=== PATIENT | male | born 1980 | race Caucasian/White ===

== ENCOUNTER 2023-03-14 10:04 | Inpatient (IN) | payer BC ==
[~2023-03-14 10:04] MED LIST: HEPARIN SODIUM,PORCINE (1 ML) 2,500 UNIT in SODIUM CHLORIDE 0.9% 250 ML IRRIGATION PRN; HEPARIN SODIUM,PORCINE 10,000 UNIT in SODIUM CHLORIDE 0.9% 1,000 ML IRRIGATION PRN
--- NOTE | 2023-03-14 10:49 | XR ---
EXAMINATION TYPE: XR chest 2V DATE OF EXAM: 03/14/2023 10:39 AM CLINICAL INDICATION:Male, 43 years old with history of Chest Pain; [facility] COMPARISON: None TECHNIQUE: XR chest 2V Frontal and lateral views of the chest. FINDINGS: Lungs/Pleura: There is no evidence of pleural effusion, focal consolidation, or pneumothorax. Pulmonary vascularity: Unremarkable. Heart/mediastinum: Cardiomediastinal silhouette is unremarkable. Musculoskeletal: No acute osseous pathology. IMPRESSION: No acute cardiopulmonary disease/process.
--- NOTE | 2023-03-14 10:50 | ED ---
Chest Pain HPI <Maico Wilkins - Last Filed: 03/14/23 12:29> - General Source: patient, RN notes reviewed Mode of arrival: ambulatory Limitations: no limitations - History of Present Illness MD Complaint: chest pain <Marge Centeno - Last Filed: 03/14/23 18:24> - General Chief Complaint: Chest Pain Stated Complaint: chest pain Time Seen by Provider: 03/14/23 10:12 - History of Present Illness Initial Comments: This is a 43-year-old male who presents to the emergency department for chest pain and shortness of breath. States that starting 2 days ago he was developing a dull aching sensation in the left shoulder with left-sided chest pain. He was also developing feelings of palpitations. The chest pain and shoulder pain have started to subside to some extent, however he is now feeling very short of breath and continues to have palpitations. States that his heart rate usually runs in the 50s, and when he was at home he would have episodes where his heart rate would go up to 140. He had similar problems a couple of years ago and saw his primary care provider, who did blood work and did not find any irregularities. Additionally, states that exertional dyspnea, especially when he is in the gym, has been a persistent problem for several months. His also states that he became winded just walking in from the parking lot today. He feels like he consumed too much caffeine and cannot settle down, however that was not the case. Denies any personal cardiac history. However, states that there is a substantial cardiac history on his mother's side, specifically in his grandmother, who was diagnosed with coronary artery disease before the age of 50. (Marge Centeno) - Related Data Home Medications Medication Instructions Recorded Confirmed No Known Home Medications 03/14/23 03/14/23 Allergies Allergy/AdvReac Type Severity Reaction Status Date / Time No Known Allergies Allergy Verified 03/14/23 14:01 Review of Systems ROS Other: All systems not noted in ROS Statement are negative. <Maico Wilkins - Last Filed: 03/14/23 12:29> ROS Other: All systems not noted in ROS Statement are negative. <Marge Centeno - Last Filed: 03/14/23 18:24> ROS Statement: Those systems with pertinent positive or pertinent negative responses have been documented in the HPI. Past Medical History Past Medical History: No Reported History History of Any Multi-Drug Resistant Organisms: None Reported Past Surgical History: No Surgical Hx Reported Past Psychological History: No Psychological Hx Reported Smoking Status: Vaper Past Alcohol Use History: None Reported Past Drug Use History: None Reported, Marijuana <Marge Centeno - Last Filed: 03/14/23 18:24> General Exam Limitations: no limitations General appearance: alert, in no apparent distress Head exam: Present: atraumatic, normocephalic, normal inspection Respiratory exam: Present: normal lung sounds bilaterally. Absent: respiratory distress, wheezes, rales, rhonchi, stridor Cardiovascular Exam: Present: normal rhythm, bradycardia Neurological exam: Present: alert, oriented X3, CN II-XII intact Psychiatric exam: Present: normal affect, normal mood Skin exam: Present: warm, dry, intact, normal color. Absent: rash <Marge Centeno - Last Filed: 03/14/23 18:24> Course <Maico Wilkins - Last Filed: 03/14/23 12:29> Vital Signs 03/14/23 03/14/23 03/14/23 10:19 11:52 12:52 Temperature 97.8 F Pulse Rate 58 L 59 L 54 L Respiratory 17 20 16 Rate Blood Pressure 131/80 129/83 132/76 O2 Sat by Pulse 53 L 97 98 Oximetry 03/14/23 03/14/23 13:30 14:36 Temperature Pulse Rate 53 L 54 L Respiratory 16 16 Rate Blood Pressure 143/85 130/67 O2 Sat by Pulse 98 98 Oximetry - Reevaluation(s) Reevaluation #1: 03/14/23 12:[address] Menendez, and cardiology, echo ordered, heparin initiated. Patient will be admitted for further evaluation and treatment, myocardial infarction versus myocarditis. (Maico Wilkins) Chest Pain MDM <Marge Centeno - Last Filed: 03/14/23 18:24> - MDM This is a 43-year-old male who presents to the emergency department for chest pain. Was pt. sent in by a medical professional or institution? @ -No Did you speak to anyone other than the patient for history? @ -His provided the information about him becoming winded walking in from the parking lot. Did you review nursing and triage notes? @ -Yes, and I agree, it is accurate with regards to the patient's symptoms. Were old charts reviewed? @ -No Differential Diagnosis? @ -Differential Chest Pain: Stable Angina, Unstable Angina, STEMI, NSTEMI Aortic Dissection, Pneumothorax, Musculoskeletal, Esophageal Spasm GERD, Cholecystitis, Pancreatitis, Zoster, this is not meant to be an all-inclusive list. EKG interpreted by me (3pts min.)? @ -EKG interpreted by me demonstrating the following: Sinus bradycardia. Ventricular rate 57 bpm, AK interval 169 ms, QRS duration 97 ms, QTC 397 ms. X-rays interpreted by me (1pt min.)? @ -Chest x-ray obtained, my interpretation identifies no localized consolidations or infiltrates. CT interpreted by me (1pt min.)? @ -Not obtained U/S interpreted by me (1pt. min.)? @ -Not obtained What testing was considered but not performed? (CT, X-rays, U/S, labs)? Why? @ -None What meds were considered but not given? Why? @ -None Did you discuss the management of the patient with other professionals? @ -Dr. Wilkins discussed the case with Dr. Figueroa, cardiology, who advised a STAT echo, heparin drip, nitropaste, and aspirin with plan to take the patient to the rn labor and delivery later today. He then discussed the case with Dr. Garcia, who accepts the patient for admission to medicine. Did you reconcile home meds? @ -Yes Was smoking cessation discussed for >3mins.? @ -No Was critical care preformed (if so, how long)? @ -Yes, >32 minutes Were there social determinants of health that impacted care today? How? (Homelessness, low income, unemployed, alcoholism, drug addiction, transportation, low edu. Level, literacy, decrease access to med. care, [place] [facility], rehab)? @ -No Was there de-escalation of care discussed even if they declined? (Discuss DNR or withdrawal of care, Hospice)? @ -No What co-morbidities impacted this encounter? (DM, HTN, Smoking, COPD, CAD, Cancer, CVA, Hep., AIDS, mental health diagnosis, sleep apnea, morbid obesity)? @ -None Was patient admitted / discharged? @ -Admitted. Lab work obtained revealing leukocytosis and a notably elevated troponin of 12.7. He also has a mild transaminitis without any prior values for comparison. Covid, influenza, and RSV testing were negative. Heterophile negative as well. Chest x-ray reveals no acute process. Case was reviewed with Dr. Wilkins, ED attending, upon receiving these findings. He discussed the case with Dr. Figueroa, cardiology. It was initially thought that this may be a myocarditis, however after further consideration, it was felt that an NSTEMI was more likely. This likely occurred on Wednesday (2 days ago) when the chest pain and left arm pain began. Patient was started on low intensity heparin protocol, given aspirin, and Nitropaste was applied per Dr. Figueroa's request. STAT echo was ordered as well. Patient admitted to medicine for NSTEMI with plan to take him to the rn labor and delivery later today. Undiagnosed new problem with uncertain prognosis? @ -None Drug Therapy requiring intensive monitoring for toxicity (Heparin, Nitro, Ins ulin, Cardizem)? @ -Heparin Were any procedures done? @ -None Diagnosis/symptom? @ -NSTEMI Acute, or Chronic, or Acute on Chronic? @ -Acute Uncomplicated (without systemic symptoms) or Complicated (systemic symptoms)? @ -Complicated Side effects of treatment? @ -None Exacerbation, Progression, or Severe Exacerbation] @ -Not applicable Poses a threat to life or bodily function? @ -Yes This case was discussed in detail with the attending ED physician, Dr. Wilkins. Presentation, findings, and treatment plan discussed in detail as well. (Marge Centeno) Disposition <Maico Wilkins - Last Filed: 03/14/23 12:29> <Marge Centeno - Last Filed: 03/14/23 18:24> Clinical Impression: Acute non-ST elevation myocardial infarction (NSTEMI) Disposition: ADMITTED IP TO THIS HOSP Condition: Stable
[2023-03-14 11:11] LABS: Basophils % (A) 0 %; Eosinophils # (A) 0.2 k/uL (0-0.7); Eosinophils % (A) 1 %; HCT 51.4 % (39.0-53.0); HGB 17.1 gm/dL (13.0-17.5); Lymphocytes # (A) 1.2 k/uL (1.0-4.8); Lymphocytes % (A) 6 %; MCH 31.8 pg (25.0-35.0); MCHC 33.3 g/dL (31.0-37.0); MCV 95.3 fL (80.0-100.0); Mean Platelet Volume 7.4; Monocytes # (A) 1.4 k/uL (0-1.0); Monocytes % (A) 7 %; Neutrophils # (A) 18.2 k/uL (1.3-7.7); Neutrophils % (A) 86 %; Platelet Count 357 k/uL (150-450); RBC 5.39 m/uL (4.30-5.90); RDW 13.6 % (11.5-15.5); WBC 21.1 k/uL (3.8-10.6)
[2023-03-14 11:26] LABS: Prothrombin Time 11.1 sec (10.0-12.5)
[2023-03-14 11:37] LABS: ALT 63 U/L (4-49); AST 165 U/L (17-59); African American GFR (CKD) >90 (>60 ml/min/1.73 sqM); Albumin 4.7 g/dL (3.5-5.0); Alkaline Phosphatase 57 U/L (38-126); Anion Gap 15 mmol/L; Blood Urea Nitrogen 9 mg/dL (9-20); Calcium 11.1 mg/dL (8.4-10.2); Carbon Dioxide 22 mmol/L (22-30); Chloride 102 mmol/L (98-107); Glucose 99 mg/dL (74-99); Magnesium 1.7 mg/dL (1.6-2.3); Non-African American GFR(CKD) >90 (>60 ml/min/1.73 sqM); Potassium 4.5 mmol/L (3.5-5.1); Sodium 139 mmol/L (137-145); Total Bilirubin 0.9 mg/dL (0.2-1.3); Total Protein 7.8 g/dL (6.3-8.2)
[2023-03-14 11:38] LABS: NT-Pro-B-Type Natriuretic Pept 543 pg/mL
[2023-03-14] MEDS ORDERED: HEPARIN SODIUM 1,000 UN/ML (10ML VL) IV ONE (11:59)
[2023-03-14] MEDS ORDERED: ASPIRIN 325 MG TAB PO STA ×2 (11:59→12:22)
[2023-03-14] MEDS ORDERED: HEPARIN SODIUM 1,000 UN/ML (10ML VL) IV PRN (11:59)
[2023-03-14] MEDS ORDERED: HEPARIN SOD,PORK IN 0.45% NACL 25,000 UNIT in 0.45% NACL 1 250ML.BAG IV SCH (12:00)
[2023-03-14] MEDS ORDERED: NITROGLYCERIN OINT 1 INCH/GM PACKET TOPICAL STA (12:11)
[2023-03-14] MEDS ORDERED: NITROGLYCERIN SL TABS 0.4 MG TAB SUBLINGUAL PRN ×2 (12:22→17:28)
[2023-03-14] MEDS ORDERED: ALPRAZolam 0.25 MG TAB PO PRN (12:22)
[2023-03-14] MEDS ORDERED: ATORVASTATIN 80 MG TAB PO STA (12:22)
[2023-03-14] MEDS ORDERED: ALPRAZolam 0.5 MG TAB PO PRN (12:22)
--- NOTE | 2023-03-14 12:22 | P.CRDCN ---
History of Present Illness Consult date: 03/14/23 History of present illness: History of Present Illness: The patient is a 43-year-old male with no prior cardiac history who presented with symptoms of left-sided chest discomfort him a shoulder discomfort that started on Wednesday night associated with dyspnea and palpitations and anxiety. His symptoms persisted until today, he came into the emergency room and was noted to have a troponin of 12. There was no acute ST segment changes. He denies any prior documented cardiac history. He is relatively active physically without any exertional chest discomfort in the past, PND, orthopnea or peripheral edema. He is in sinus mechanism on presentation but he felt palpit ations at home. He felt diaphoretic and dizzy today. He continues to have mild discomfort at the time of my evaluation. He smokes marijuana and chews tobacco. Medications: None Review of Systems: Respiratory: He is a history of dyspnea recently but no wheezing GI: No nausea or vomiting . No history of peptic ulcer disease. No recent GI bleed. : No hematuria or dysuria. Nervous System: No stroke or seizure. Physical Examination: 43-year-old male, alert oriented no apparent distress ,Blood pressure 129/80, Heart rate 59 Head: Normocephalic. Eyes: Sclerae nonicteric. Neck: Good carotid upstroke, no bruit, no jugular venous distention. Lungs: Clear to auscultation. Heart: Regular rate and rhythm, S1-S2, no S3, no rub. No murmur. Abdomen: Soft nontender, positive bowel sounds no organomegaly. Extremities: No edema, intact distal pulses. Labs: WBC 21.1, hemoglobin 17.1, potassium 4.1, BUN 9, creatinine 0.84. Troponin 12.7, NT proBNP 543. Chest x-ray with no acute infiltrate EKG: Sinus mechanism with no acute ST segment changes Impression: 1. Non-STEMI, the patient started with symptoms of chest discomfort over 36 hours ago, it is unclear if the troponin are trending up or down 2. History of tobacco use 3. History of marijuana use 4. Family history premature CAD in his grandmother but not parents Plan: 1. Obtain an echocardiogram 2. Start heparin 3. I have recommended to proceed with cardiac catheterization, the risks and the complications were discussed with the patient who is in full agreement and understanding 4. Depending on the results of the testing further recommendations will be made 5. Thank you for this consult we will follow with you Past Medical History Past Medical History: No Reported History History of Any Multi-Drug Resistant Organisms: None Reported Past Surgical History: No Surgical Hx Reported Past Psychological History: No Psychological Hx Reported Smoking Status: Vaper Past Alcohol Use History: None Reported Past Drug Use History: None Reported, Marijuana Medications and Allergies Home Medications Medication Instructions Recorded Confirmed Type No Known Home Medications 03/14/23 03/14/23 History Allergies Allergy/AdvReac Type Severity Reaction Status Date / Time No Known Allergies Allergy Verified 03/14/23 10:19 Physical Exam Vitals: Vital Signs Temp Pulse Resp BP Pulse Ox 03/14/23 11:52 59 L 20 129/83 97 03/14/23 10:19 97.8 F 58 L 17 131/80 53 L Intake and Output 03/13/23 03/14/23 03/14/23 22:59 06:59 14:59 Other: Weight 102.058 kg Results 03/14/23 11:03 03/14/23 11:03 Cardiac Enzymes 03/14/23 03/14/23 Range/Units 11:03 11:03 AST 165 H (17-59) U/L Troponin I 12.700 H* (0.000-0.034) ng/mL Coagulation 03/14/23 Range/Units 11:03 PT 11.1 (10.0-12.5) sec APTT 22.0 (22.0-30.0) sec CBC 03/14/23 Range/Units 11:03 WBC 21.1 H (3.8-10.6) k/uL RBC 5.39 (4.30-5.90) m/uL Hgb 17.1 (13.0-17.5) gm/dL Hct 51.4 (39.0-53.0) % Plt Count 357 (150-450) k/uL Comprehensive Metabolic Panel 03/14/23 Range/Units 11:03 Sodium 139 (137-145) mmol/L Potassium 4.5 (3.5-5.1) mmol/L Chloride 102 (98-107) mmol/L Carbon Dioxide 22 (22-30) mmol/L BUN 9 (9-20) mg/dL Creatinine 0.84 (0.66-1.25) mg/dL Glucose 99 (74-99) mg/dL Calcium 11.1 H (8.4-10.2) mg/dL AST 165 H (17-59) U/L ALT 63 H (4-49) U/L Alkaline Phosphatase 57 (38-126) U/L Total Protein 7.8 (6.3-8.2) g/dL Albumin 4.7 (3.5-5.0) g/dL Current Medications Generic Name Dose Route Start Last Admin Trade Name Freq PRN Reason Stop Dose Admin Heparin Sodium (Porcine) 0 unit 03/14/23 11:59 Heparin Sodium 1,000 Un/Ml (10ml Vl) IV PER PROTOCOL PRN Low PTT Protocol Heparin Sodium/Sodium Chloride 250 mls @ 10 mls/hr 03/14/23 12:00 25,000 unit/ Sodium Chloride IV .Q24H [facility] Protocol 9.798 UNITS/KG/HR Intake and Output 03/13/23 03/14/23 03/14/23 22:59 06:59 14:59 Other: Weight 102.058 kg Patient Weight 03/15/23 06:59 Weight 102.058 kg 03/14/23 11:03 03/14/23 11:03
[2023-03-14] MEDS ORDERED: ASPIRIN 81 MG PO STA (12:23)
[2023-03-14] MEDS ORDERED: ACETAMINOPHEN TAB 325 MG TAB PO PRN (12:30)
[2023-03-14] MEDS ORDERED: MORPHINE SULFATE 4 MG/ML SYRINGE IV PRN (12:30)
[2023-03-14] MEDS ORDERED: HYDROcodone/APAP 5-325MG 1 EACH TAB PO PRN (12:30)
[2023-03-14] MEDS ORDERED: NALOXONE 0.4 MG/ML 1 ML VIAL IV PRN (12:30)
[2023-03-14] MEDS ORDERED: ONDANSETRON 4 MG/2 ML VIAL IVP PRN (12:30)
--- NOTE | 2023-03-14 13:30 | P.HPIM ---
History of Present Illness This is a with no significant past medical history Presents because of left-sided chest pain started Wednesday morning or Wednesday night on the left side of the chest radiating to the left shoulder blade and the back, nonspecific about 4/10 in severity Associated with dyspnea. He denies any headache weakness numbness, no change in urine or bowel habits He denies smoking but he chews tobacco and he was counseled to quit and he agrees. No alcohol and he uses marijuana. Patient Vitas looks stable, he has mild asymptomatic bradycardia He is afebrile. BMP and liver enzymes were unremarkable He has leukocytosis of 21,000, d-dimer negative less than 0.17. Troponin elevated at 27.7 BNP is 543. Influenza A and type B, RSV, SARS (coronavirus) are and detected Hydrophil intubated is negative Chest x-ray is negative. Patient was started with heparin drip Review of Systems Review of systems CONSTITUTIONAL: No fever, no malaise, no fatigue. HEENT: No recent visual problems or hearing problems. Denied any sore throat. CARDIOVASCULAR: No orthopnea, PND, no palpitations, no syncope. PULMONARY: No shortness of breath, no cough, no hemoptysis. GASTROINTESTINAL: No diarrhea, no nausea, no vomiting, no abdominal pain. Normoactive bowel sounds. NEUROLOGICAL: No headaches, no weakness, no numbness. HEMATOLOGICAL: Denies any bleeding or petechiae. GENITOURINARY: Denies any burning micturition, frequency, or urgency. MUSCULOSKELETAL/RHEUMATOLOGICAL: Denies any joint pain, swelling, or any muscle pain. ENDOCRINE: Denies any polyuria or polydipsia. Past Medical History Past Medical History: No Reported History History of Any Multi-Drug Resistant Organisms: None Reported Past Surgical History: No Surgical Hx Reported Past Psychological History: No Psychological Hx Reported Smoking Status: Vaper Past Alcohol Use History: None Reported Past Drug Use History: None Reported, Marijuana Medications and Allergies Home Medications Medication Instructions Recorded Confirmed Type No Known Home Medications 03/14/23 03/14/23 History Allergies Allergy/AdvReac Type Severity Reaction Status Date / Time No Known Allergies Allergy Verified 03/14/23 10:19 Physical Exam Vitals: Vital Signs Temp Pulse Resp BP Pulse Ox 03/14/23 12:52 54 L 16 132/76 98 03/14/23 11:52 59 L 20 129/83 97 03/14/23 10:19 97.8 F 58 L 17 131/80 53 L Intake and Output 03/13/23 03/14/23 03/14/23 22:59 06:59 14:59 Other: Weight 102.058 kg GENERAL: The patient is alert and oriented x3, not in any acute distress. Well developed, well nourished. HEENT: Pupils are round and equally reacting to light. EOMI. No scleral icterus. No conjunctival pallor. Normocephalic, atraumatic. No pharyngeal erythema. No thyromegaly. CARDIOVASCULAR: S1 and S2 present. No murmurs, rubs, or gallops. PULMONARY: Chest is clear to auscultation, no wheezing , no crackles. ABDOMEN: Soft, nontender, nondistended, normoactive bowel sounds. No palpable organomegaly. MUSCULOSKELETAL: No joint swelling or deformity. EXTREMITIES: No cyanosis, clubbing, or pedal edema. NEUROLOGICAL: Gross neurological examination did not reveal any focal deficits. SKIN: No rashes. no petechiae. Results CBC & Chem 7: 03/14/23 11:03 03/14/23 11:03 Labs: Abnormal Lab Results - Last 24 Hours (Table) 03/14/23 03/14/23 03/14/23 Range/Units 11:03 11:03 11:03 WBC 21.1 H (3.8-10.6) k/uL Neutrophils # 18.2 H (1.3-7.7) k/uL Monocytes # 1.4 H (0-1.0) k/uL Calcium 11.1 H (8.4-10.2) mg/dL AST 165 H (17-59) U/L ALT 63 H (4-49) U/L Troponin I 12.700 H* (0.000-0.034) ng/mL Assessment and Plan Assessment: Non-STEMI with elevated troponin Left side pain of the chest secondary to above Left leukocytosis mostly secondary to above, no evidence of infection and patient is afebrile Asymptomatic bradycardia Plan: Continue with heparin drip Cardiology team are planning for cardiac cath Patient received aspirin and lipid respiratory the emergency room Labs and medication were reviewed.. Continue same treatment. Continue with symptomatic treatment. Resume home medication. Monitor labs and vitals. DVT and GI prophylaxis. Further recommendations as per clinical course of the patient DVT prophylaxis: heparin GI Prophylaxis: Pepcid Prognosis is guarded
--- NOTE | 2023-03-14 15:08 | CA ---
Transthoracic Echo Report Name: Zeke Tesfaye Age: 43 Gender: M : 1980 Exam Date: 03/14/2023 12:15 Exam Location: [place] [facility] Ht (in): 72 Wt (lb): 225 Ordering Physician: Maico Wilkins MD Attending/Referring Phys: [employer] Richelle Perez [facility] Procedure CPT: Indications: [place] Cardiac Hx: Technical Quality: Fair Contrast 1: Total Dose (mL): Contrast 2: Total Dose (mL): MEASUREMENTS (Male / Female) Normal Values 2D ECHO LV Diastolic Diameter PLAX 5.4 cm 4.2 - 5.9 / 3.9 - 5.3 cm LV Systolic Diameter PLAX 3.3 cm IVS Diastolic Thickness 1.0 cm 0.6 - 1.0 / 0.6 - 0.9 cm LVPW Diastolic Thickness 1.0 cm 0.6 - 1.0 / 0.6 - 0.9 cm LV Relative Wall Thickness 0.4 LVOT Diameter 2.0 cm Ascending Aorta Diameter 3.5 cm M-MODE Aortic Root Diameter MM 3.0 cm LA Systolic Diameter MM 3.7 cm LA Ao Ratio MM 1.2 AV Cusp Separation MM 2.5 cm DOPPLER AV Peak Velocity 193.0 cm/s AV Peak Gradient 14.9 mmHg AV Mean Velocity 121.8 cm/s AV Mean Gradient 7.3 mmHg AV Velocity Time Integral 38.2 cm LVOT Peak Velocity 184.2 cm/s LVOT Peak Gradient 13.6 mmHg LVOT Velocity Time Integral 36.4 cm LVOT Stroke Volume 118.1 cm??? LVOT Stroke Volume Index 52.7 ml/m??? LVOT Cardiac Index 2463.8 cm???/min???m??? AV Area Cont Eq vti 3.1 cm??? AV Area Cont Eq pk 3.1 cm??? Mitral E Point Velocity 81.4 cm/s Mitral A Point Velocity 62.3 cm/s Mitral E to A Ratio 1.3 MV Deceleration Time 177.7 ms LV E' Lateral Velocity 19.1 cm/s Mitral E to LV E' Lateral Ratio 4.3 LV E' Septal Velocity 11.4 cm/s Mitral E to LV E' Septal Ratio 7.1 FINDINGS Left Ventricle Left ventricular wall thickness at upper limits of normal. Left ventricular cavity size normal. Normal left ventricular systolic function. Normal left ventricular diastolic filling pattern. Left ventricular ejection fraction is estimated at 55-60 %. Right Ventricle Mild right ventricular dilatation. Unable to estimate the right ventricular systolic pressure. Right Atrium Moderate right atrial dilatation. Left Atrium The left atrium is normal in size. Mitral Valve Structurally normal mitral valve without significant stenosis or prolapse. Mild mitral regurgitation. Aortic Valve Trileaflet aortic valve. No aortic valve stenosis or regurgitation. Tricuspid Valve Structurally normal tricuspid valve. No tricuspid regurgitation. Pulmonic Valve Pulmonic valve not well visualized. Pericardium Normal pericardium without effusion. Aorta Normal aortic root dimension. CONCLUSIONS Normal left ventricle size and systolic function Mild mitral regurgitation Previewed by: Dr. Frederic Figueroa MD (Electronically Signed) Final Date: 14 March 2023 15:07
[2023-03-14] MEDS ORDERED: LIDOCAINE 1% INJ 10MG/ML (20 ML MDV) ONE (15:40)
[2023-03-14] MEDS ORDERED: VERAPAMIL 2.5 MG/ML 2 ML AMP ONE (15:41)
[2023-03-14] MEDS ORDERED: SODIUM CHLORIDE 0.9% 1,000 ML IV ONE (15:50)
[2023-03-14] MEDS ORDERED: HEPARIN SODIUM 1,000 UN/ML (10ML VL) ONE ×2 (15:55→16:27)
[2023-03-14] MEDS ORDERED: fentaNYL (PF) 50 MCG/ML 2 ML AMP ONE (15:55)
[2023-03-14] MEDS ORDERED: fentaNYL (PF) 50 MCG/ML 2 ML AMP IVP ONE (15:56)
[2023-03-14] MEDS ORDERED: LIDOCAINE 1% INJ 10MG/ML (20 ML MDV) SQ ONE (15:57)
[2023-03-14] MEDS: MIDAZOLAM 2 MG/2 ML VIAL IVP ONE ×2 (15:58→16:52)
[2023-03-14] MEDS ORDERED: VERAPAMIL SYRINGE (5 MG/10 ML) INTRAARTER ONE (15:59)
[2023-03-14] MEDS: HEPARIN SODIUM 1,000 UN/ML (10ML VL) IV ONE ×6 (16:03→17:01)
[2023-03-14] MEDS ORDERED: PRASUGREL 10 MG TAB ONE (16:09)
[2023-03-14] MEDS ORDERED: PRASUGREL 10 MG TAB PO ONE (16:11)
[2023-03-14] MEDS ORDERED: IOPAMIDOL-370 100ML BTL INJ ONE ×3 (16:20→17:18)
[2023-03-14] MEDS: NITROGLYCERIN 1000MCG/10ML SYRINGE INTRACORON ONE ×2 (16:28→16:54)
[2023-03-14] MEDS ORDERED: TIROFIBAN 12.5MG-250ML NS 250 ML IV ONE (17:06)
[2023-03-14] MEDS ORDERED: TIROFIBAN BOLUS 12.5MG/250 ML BAG IV ONE (17:14)
[2023-03-14] MEDS ORDERED: MAG HYDROX/AL HYDROX/SIMETH 30 ML CUP PO PRN (17:28)
[2023-03-14] MEDS ORDERED: ZOLPIDEM 5 MG TAB PO PRN (17:28)
[2023-03-14] MEDS ORDERED: ATROPINE SULFATE 0.1 MG/ML 10ML SYRINGE IV PRN (17:28)
[2023-03-14] MEDS ORDERED: RX INFO: IV CONTRAST WAS GIVEN 1 EACH MISC MISCELLANE PRN (17:28)
[2023-03-14] MEDS ORDERED: SODIUM CHLORIDE 0.9% 1,000 ML in EMPTY BAG 1 BAG IV SCH (17:30)
[2023-03-14] MEDS: TIROFIBAN 12.5MG-250ML NS 250 ML IV SCH (17:30)
--- NOTE | 2023-03-14 17:40 | P.CARDCATH ---
Date of Procedure: 03/14/23 Description of Procedure: Cardiac Catheterization: The patient is a 43-year-old male with known history of chronic tobacco use, family history of premature CAD who presented with chest discomfort that started 2 days ago and on arrival at the troponin of 12. He had no significant EKG changes. Recommendations were made regarding cardiac catheterization, the risks and the complications were discussed with the patient who is in full understanding and agreement. Procedure Description: Patient was brought to photo lab manager in fasting semi-sedated state after receiving Fentanyl and Benadryl achieiving moderate conscious sedated state. Using Xylocaine Anesthesia and modified Seldinger technique, a 6-Icelandic sheath was introduced in the right radial artery . Subsequently, selective coronary angiography was performed using a 5-Icelandic 3.5 bend Jeff catheter. Multiple views of the coronary artery including hemiaxial views were obtained. The 6-Icelandic pigtail catheter was used to cross the aortic valve and LVEDP was calculated. PCI: After removing the catheters 6-Icelandic AL 0.75 guiding catheter was introduced and after cannulating the right coronary ostium a 0.014 BMW J-wire was positioned in the distal PDA. Subsequently a 2.5 x 12 mm Treck was advanced and multiple inflations were done at 8 artemio. Subsequently a Werdsmith eye IVUS was advanced and images were obtained. After removing the catheter 2.25 x 15 mm Xience Skypoint stent was deployed at 16 artemio, after removing the balloon a 3.5 x 38 mm Xience Anand stent was deployed to 16 artemio proximal to the first one. Repeat IVUS images were obtained and subsequently a 4.0 x 20 mm NC Treck was advanced and multiple inflations at 10 artemio were done. After the last inflation the balloon was removed and the wire was removed images were obtained and revealed stable successful stenting. Following that, catheter and sheath were removed. Hemostasis was obtained with deployment of vascular band . There was no immediate complication. Patient was returned to room in stable condition. Of note, the patient received a total of 17,000 units of intravenous heparin as well as intra-arterial verapamil. He received an oral loading dose of Effient. He was started on Aggrastat. His ACT was monitored. He had no EKG changes or chest discomfort with the inflations. Findings: Left main: This is a large size vessel, bifurcating into LAD and left circumflex, left main has no high-grade stenosis LAD: This is a large size vessel, reaching to the apex giving rise to a moderate diagonal branch in the mid segment. The LAD has diffuse intimal disease of 20- 30%. There was ectatic segment in the diagonal branch Left circumflex: This is a codominant vessel, giving rise to a large up to his marginal branch. The first 2 obtuse marginal branch are small in caliber. The vessel bifurcated distally to PDA and PLV. The left circumflex has diffuse intimal disease with area of stenosis up to 30%. RCA: This is a codominant vessel large in caliber. The proximal segment has 20- 30%. The mid and distal segment is diffusely diseased with areas stenosis up to 80%. The PDA has had 80-90% stenosis at the takeoff the PLV is totally occluded no significant antegrade flow Left Ventriculogram: Not performed Hemodynamics: There was no gradient across the aortic valve, LVEDP was 20-25 mmHg Conclusion: 1. Diffuse significant disease in the RCA with total occlusion of the PLV. The PLV and PDA are small in caliber 2. Mild to moderate disease in a diffuse pattern in the LAD and left circumflex 3. Codominant system 4. Successful stenting of the mid and distal RCA with reduction of stenosis from 80% to less than 5%. The PLV was totally occluded Recommendations: The patient would continue on aspirin and Effient for 1 year without any interruption in addition to aggressive coronary risks modification including smoking cessation and maintaining LDL below 70 mg/dL. The findings and the recommendations were discussed with the patient and the family and they were in full understanding and agreement. Duration of sedation is 76 minutes.
[2023-03-14] MEDS: METOPROLOL TARTRATE 25 MG TAB PO SCH (21:46)
[2023-03-15] MEDS: TIROFIBAN 12.5MG-250ML NS 250 ML IV SCH (02:25)
[2023-03-15 04:51] LABS: Basophils % (A) 0 %; Eosinophils % (A) 0 %; HCT 45.7 % (39.0-53.0); HGB 14.8 gm/dL (13.0-17.5); Lymphocytes # (A) 1.6 k/uL (1.0-4.8); Lymphocytes % (A) 9 %; MCH 30.7 pg (25.0-35.0); MCHC 32.5 g/dL (31.0-37.0); MCV 94.5 fL (80.0-100.0); Mean Platelet Volume 7.7; Monocytes % (A) 11 %; Neutrophils # (A) 14.5 k/uL (1.3-7.7); Neutrophils % (A) 78 %; Platelet Count 334 k/uL (150-450); RBC 4.83 m/uL (4.30-5.90); RDW 13.9 % (11.5-15.5); WBC 18.6 k/uL (3.8-10.6)
[2023-03-15 04:55] LABS: INR 1.1 (<1.2); Prothrombin Time 12.1 sec (10.0-12.5)
[2023-03-15 08:34] LABS: African American GFR (CKD) >90 (>60 ml/min/1.73 sqM); Anion Gap 14 mmol/L; Blood Urea Nitrogen 10 mg/dL (9-20); Calcium 10.1 mg/dL (8.4-10.2); Carbon Dioxide 23 mmol/L (22-30); Chloride 101 mmol/L (98-107); Glucose 97 mg/dL (74-99); Non-African American GFR(CKD) >90 (>60 ml/min/1.73 sqM); Potassium 4.7 mmol/L (3.5-5.1); Sodium 138 mmol/L (137-145)
--- NOTE | 2023-03-15 09:01 | P.PN ---
Subjective This is a [id number] with no significant past medical history Presents because of left-sided chest pain started Wednesday morning or Wednesday night on the left side of the chest radiating to the left shoulder blade and the back, nonspecific about 4/10 in severity Associated with dyspnea. He denies any headache weakness numbness, no change in urine or bowel habits He denies smoking but he chews tobacco and he was counseled to quit and he agrees. No alcohol and he uses marijuana. Patient Lonnie looks stable, he has mild asymptomatic bradycardia He is afebrile. BMP and liver enzymes were unremarkable He has leukocytosis of 21,000, d-dimer negative less than 0.17. Troponin elevated at 27.7 BNP is 543. Influenza A and type B, RSV, SARS (coronavirus) are and detected Hydrophil intubated is negative Chest x-ray is negative. Patient was started with heparin drip 03/15/2023 Patient status post PCI of the right coronary artery 2 in the middle and distal parts No chest pain today Patient was counseled about the role antiplatelet therapy with aspirin and effient and he verbalized understanding and acceptance. Risk of bleeding explained extensively for him extensively and he agrees. Possible discharge tone was cleared by cardiology team Objective - Vital Signs Vital signs: Vital Signs Temp 98.6 F 03/15/23 07:36 Pulse 60 03/15/23 07:36 Resp 16 03/15/23 07:36 BP 119/72 03/15/23 07:36 Pulse Ox 97 03/15/23 07:36 FiO2 Intake & Output 03/14/23 03/15/23 03/15/23 18:59 06:59 18:59 Intake Total 652 Balance 652 Weight 102.058 kg 100.1 kg Intake: IV 252 Oral 400 Other: # Voids 2 # Bowel Movements 1 - Exam GENERAL: The patient is alert and oriented x3, not in any acute distress. Well developed, well nourished. HEENT: Pupils are round and equally reacting to light. EOMI. No scleral icterus. No conjunctival pallor. Normocephalic, atraumatic. No pharyngeal erythema. No thyromegaly. CARDIOVASCULAR: S1 and S2 present. No murmurs, rubs, or gallops. PULMONARY: Chest is clear to auscultation, no wheezing , no crackles. ABDOMEN: Soft, nontender, nondistended, normoactive bowel sounds. No palpable organomegaly. MUSCULOSKELETAL: No joint swelling or deformity. EXTREMITIES: No cyanosis, clubbing, or pedal edema. NEUROLOGICAL: Gross neurological examination did not reveal any focal deficits. SKIN: No rashes. no petechiae. - Labs CBC & Chem 7: 03/15/23 03:32 03/15/23 07:45 Labs: Abnormal Lab Results - Last 24 Hours (Table) 03/14/23 03/14/23 03/14/23 Range/Units 11:03 11:03 11:03 WBC 21.1 H (3.8-10.6) k/uL Neutrophils # 18.2 H (1.3-7.7) k/uL Monocytes # 1.4 H (0-1.0) k/uL APTT (22.0-30.0) sec Calcium 11.1 H (8.4-10.2) mg/dL AST 165 H (17-59) U/L ALT 63 H (4-49) U/L Troponin I 12.700 H* (0.000-0.034) ng/mL 03/14/23 03/14/23 03/15/23 Range/Units 13:56 18:21 03:32 WBC 18.6 H (3.8-10.6) k/uL Neutrophils # 14.5 H (1.3-7.7) k/uL Monocytes # 2.0 H (0-1.0) k/uL APTT >200.0 H* (22.0-30.0) sec Calcium (8.4-10.2) mg/dL AST (17-59) U/L ALT (4-49) U/L Troponin I 12.900 H* (0.000-0.034) ng/mL Assessment and Plan Assessment: Non-STEMI with elevated troponin, status post PCI to mid and distal RCA Left side pain of the chest secondary to above Left leukocytosis mostly secondary to above, no evidence of infection and patient is afebrile, improvement Asymptomatic bradycardia Plan: Continue with aspirin and effient Cardiology team are following closely Monitor wbc, improving. No signs of infection. Afebrile. No need for antibiotics for now Labs and medication were reviewed.. Continue same treatment. Continue with symptomatic treatment. Resume home medication. Monitor labs and vitals. DVT and GI prophylaxis. Further recommendations as per clinical course of the patient DVT prophylaxis: DAPT GI Prophylaxis: Pepcid Possible discharge soon once cleared by cardiology team
[2023-03-15] MEDS: METOPROLOL TARTRATE 25 MG TAB PO SCH ×2 (09:02→21:24)
[2023-03-15] MEDS: ATORVASTATIN 80 MG TAB PO SCH (09:02)
[2023-03-15] MEDS: ASPIRIN 81 MG PO SCH (09:02)
[2023-03-15] MEDS: PRASUGREL 10 MG TAB PO SCH (09:03)
[2023-03-15 13:59] VITALS: BMI 29.9
--- NOTE | 2023-03-15 18:13 | P.PN ---
Subjective History of Present Illness: The patient is a 43-year-old male with no prior cardiac history who presented with symptoms of left-sided chest discomfort him a shoulder discomfort that started on Wednesday night associated with dyspnea and palpitations and anxiety. His symptoms persisted until today, he came into the emergency room and was noted to have a troponin of 12. There was no acute ST segment changes. He denies any prior documented cardiac history. He is relatively active physically without any exertional chest discomfort in the past, PND, orthopnea or peripheral edema. He is in sinus mechanism on presentation but he felt palpitations at home. He felt diaphoretic and dizzy today. He continues to have mild discomfort at the time of my evaluation. He smokes marijuana and chews tobacco. Medications: None 03/15 Patient seen and examined. Patient underwent heart catheterization yesterday with diffuse RCA disease and underwent stenting with some thrombus as well and was placed on Aggrastat drip. Echo showed EF 55-60%. Currently denies any chest pain or pressure. He is tolerating antiplatelets. Denies any hematochezia or melena. Vitals reviewed Head: Normocephalic. Eyes: Sclerae nonicteric. Neck: Good carotid upstroke, no bruit, no jugular venous distention. Lungs: Clear to auscultation. Heart: Regular rate and rhythm, S1-S2, no S3, no rub. No murmur. Abdomen: Soft nontender, positive bowel sounds no organomegaly. Extremities: No edema, intact distal pulses. Impression: 1. Non-STEMI type 1 2. History of tobacco use 3. History of marijuana use 4. Family history premature CAD in his grandmother but not parents 5. CAD status post PCI RCA with residual small vessel occluded PLV Plan: Patient currently chest pain-free and underwent stenting of RCA with diffuse disease. Discussed aggressive risk factor modification including tobacco cessation, aggressive cholesterol regimen. Continue to monitor for another 24 hours and if stable 03/16, likely discharge home. Okay for transfer from ICU. Objective - Vital Signs Vital signs: Vital Signs Temp 98.1 F 03/15/23 16:00 Pulse 56 L 03/15/23 16:00 Resp 12 03/15/23 16:00 BP 111/67 03/15/23 16:00 Pulse Ox 97 03/15/23 16:00 FiO2 Intake & Output 1203/15/23 03/15/23 18:59 06:59 18:59 Intake Total 652 600 Balance 652 600 Weight 102.058 kg 100.1 kg 100.1 kg Intake: IV 252 Oral 400 600 Other: # Voids 2 2 # Bowel Movements 1 - Labs CBC & Chem 7: 03/15/23 03:32 03/15/23 07:45 Labs: Abnormal Lab Results - Last 24 Hours (Table) 03/14/23 03/15/23 03/15/23 Range/Units 18:21 03:32 11:37 WBC 18.6 H (3.8-10.6) k/uL Neutrophils # 14.5 H (1.3-7.7) k/uL Monocytes # 2.0 H (0-1.0) k/uL APTT >200.0 H* (22.0-30.0) sec Troponin I 9.630 H* (0.000-0.034) ng/mL
[2023-03-15 19:56] LABS: HCT 46.4 % (39.0-53.0); HGB 15.4 gm/dL (13.0-17.5); MCH 31.7 pg (25.0-35.0); MCHC 33.1 g/dL (31.0-37.0); MCV 95.6 fL (80.0-100.0); Mean Platelet Volume 7.3; Platelet Count 313 k/uL (150-450); RBC 4.85 m/uL (4.30-5.90); RDW 13.5 % (11.5-15.5); WBC 19.1 k/uL (3.8-10.6)
[2023-03-15 20:49] LABS: LDL Cholesterol,Calculated 257.3 mg/dL (0.0-131.0); VLDL Calculation 18.54 mg/dL (5.00-40.00)
[2023-03-15] MEDS ORDERED: MELATONIN 5 MG TABLET PO SCH (21:00)
[2023-03-16] MEDS: ATORVASTATIN 80 MG TAB PO SCH (08:38)
[2023-03-16] MEDS: METOPROLOL TARTRATE 25 MG TAB PO SCH (08:38)
[2023-03-16] MEDS: ASPIRIN 81 MG PO SCH (08:38)
[2023-03-16] MEDS: PRASUGREL 10 MG TAB PO SCH (08:39)
[2023-03-16 12:21] VITALS: BP 124/75; PULSE 73; RESP 20; TEMP 98.2
--- NOTE | 2023-03-16 13:27 | P.PN ---
Subjective History of Present Illness: The patient is a 43-year-old male with no prior cardiac history who presented with symptoms of left-sided chest discomfort him a shoulder discomfort that started on Wednesday night associated with dyspnea and palpitations and anxiety. His symptoms persisted until today, he came into the emergency room and was noted to have a troponin of 12. There was no acute ST segment changes. He denies any prior documented cardiac history. He is relatively active physically without any exertional chest discomfort in the past, PND, orthopnea or peripheral edema. He is in sinus mechanism on presentation but he felt palpitations at home. He felt diaphoretic and dizzy today. He continues to have mild discomfort at the time of my evaluation. He smokes marijuana and chews tobacco. Medications: None 03/15 Patient seen and examined. Patient underwent heart catheterization yesterday with diffuse RCA disease and underwent stenting with some thrombus as well and was placed on Aggrastat drip. Echo showed EF 55-60%. Currently denies any chest pain or pressure. He is tolerating antiplatelets. Denies any hematochezia or melena. 03/16 Patient seen and examined. Patient denies any chest pain or pressure. Cholesterol resulted with LDL 257. Vitals reviewed Head: Normocephalic. Eyes: Sclerae nonicteric. Neck: Good carotid upstroke, no bruit, no jugular venous distention. Lungs: Clear to auscultation. Heart: Regular rate and rhythm, S1-S2, no S3, no rub. No murmur. Abdomen: Soft nontender, positive bowel sounds no organomegaly. Extremities: No edema, intact distal pulses. Impression: 1. Non-STEMI type 1 2. History of tobacco use 3. History of marijuana use 4. Family history premature CAD in his grandmother but not parents 5. CAD status post PCI RCA with residual small vessel occluded PLV Plan: Patient without any further angina-type symptoms. Continue with dual antiplatelets. May need additional cholesterol regimen with extremely elevated LDL 257. Stable for discharge home. Objective - Vital Signs Vital signs: Vital Signs Temp 98.2 F 03/16/23 12:00 Pulse 73 03/16/23 12:00 Resp 20 03/16/23 12:00 BP 124/75 03/16/23 12:00 Pulse Ox 98 03/16/23 12:00 FiO2 Intake & Output 1203/16/23 03/16/23 18:59 06:59 18:59 Intake Total 600 350 Balance 600 350 Weight 100.1 kg Intake: Oral 600 350 Other: # Voids 2 0 2 - Labs CBC & Chem 7: 03/15/23 19:41 03/15/23 07:45 Labs: Abnormal Lab Results - Last 24 Hours (Table) 03/15/23 03/15/23 Range/Units 07:45 19:41 WBC 19.1 H (3.8-10.6) k/uL Cholesterol 300.00 H (0.00-200.00) mg/dL LDL Cholesterol, Calc 257.3 H (0.0-131.0) mg/dL HDL Cholesterol 24.20 L (40.00-60.00) mg/dL
--- NOTE | 2023-03-17 07:43 | P.DS ---
Providers Date of admission: 03/14/23 12:29 Attending physician: Cornelio Garcia MD Consults: 03/14/23 12:30 Consult Physician Urgent Consulting Provider: Frederic Figueroa Consult Reason/Comments: NSTEMI Do you want consulting provider notified?: Already Contacted 03/14/23 17:28 Consult Physician Routine Consulting Provider: [facility] Consult Reason/Comments: Post Interventional Patient Do you want consulting provider notified?: Already Contacted Primary care physician: Americo Ignacio Hospital Course: Diagnoses: Non-STEMI with elevated troponin, status post PCI to mid and distal RCA Left side pain of the chest secondary to above, completely resolved currently leukocytosis mostly secondary to above, currently there is no evidence of infection and patient is afebrile, other causes need to be ruled out if no improvement like infection and malignancy Asymptomatic bradycardia, Secondary to above Dyslipidemia Hospital course: This is a [id number] with no significant past medical history Presents because of left-sided chest pain started Wednesday morning or Wednesday night on the left side of the chest radiating to the left shoulder blade and the back, nonspecific about 4/10 in severity, Associated with dyspnea. Patient evaluated by refinish technician and found to have non-STEMI, he underwent cardiac cath and PCI to mid and distal RCA postprocedure he was monitored in the ICU and remained clinically stable with no chest pain and his symptoms resolved. Patient was started and will antiplatelet therapy and the importance of adherence to treatment is explained to the patient extensively and he verbalized understanding and acceptance. Also patient was with evidence of leukocytosis 21.1k, 18.6k and today is 19.1k , thought secondary to his non-STEMI, however other causes need to be ruled out especially if there is no improvement. Currently there is no evidence of infection, no fever, no other symptoms, however he needs to be followed closely as an outpatient I talked to his PCP Dr. Ignacio and he is aware of this problem on going to check his white cell count in 2 days as he has appointment made for the patient on 03/18 at 5:30 PM, patient made aware of this problem and his follow-up appointment and he agrees to follow up with , I offered for the patient to keep him in the hospital and to other workup and monitoring however he preferred to go see his PCP in 2 days as above, patient is aware with possibility of infection, malignancy, versus other and he verbalized understanding and acceptance with this plan. On the day of discharge patient is back to baseline, he is denying any other new complaints like no chest pain or dyspnea, no change in urine or bowel habits, no chills no fever no headache dizziness weakness or numbness. Patient is eager to go home today and he misses his kids as well Patient is cleared for discharge by refinish technician Problems and management plan were discussed with the patient and he verbalized understanding and acceptance Patient was found stable and can be discharged home in guarded prognosis however he needs follow-up as an outpatient. Patient was instructed to follow up with PCP Dr. Ignacio within one week and patient agrees with appointment made for the patient on 03/18 at 5:30 PM, Patient was instructed to follow up with his refinish technician Dr. Kemp in 1 week after discharge and he agrees as well She will be discharged on aspirin and Effient Physical exam Gen: patient is a AAOx3, no distress CVS: S1-S2, RRR, no murmur Lungs: B/L CTA, no wheezing Abdomen: soft, no distention, no tenderness, positive bowel sounds Extremity: no leg edema or induration Time spent more than 35 minutes Patient Condition at Discharge: Stable Plan - Discharge Summary Discharge Rx Participant: Yes New Discharge Prescriptions: New Prasugrel [Effient] 10 mg PO DAILY #30 tab Metoprolol Tartrate [Lopressor] 25 mg PO BID #60 tab Nitroglycerin Sl Tabs [Nitrostat] 0.4 mg SUBLINGUAL Q5M PRN #20 tab PRN Reason: Chest Pain Aspirin 81 mg PO DAILY #30 tab Atorvastatin [Lipitor] 80 mg PO DAILY #30 tab Acetaminophen Tab [Tylenol] 650 mg PO Q6HR PRN tab PRN Reason: Mild Pain Or Fever > 100.5 Discharge Medication List Acetaminophen Tab [Tylenol] 650 mg PO Q6HR PRN tab 03/16/23 [Rx] Aspirin 81 mg PO DAILY #30 tab 03/16/23 [Rx] Atorvastatin [Lipitor] 80 mg PO DAILY #30 tab 03/16/23 [Rx] Metoprolol Tartrate [Lopressor] 25 mg PO BID #60 tab 03/16/23 [Rx] Nitroglycerin Sl Tabs [Nitrostat] 0.4 mg SUBLINGUAL Q5M PRN #20 tab 03/16/23 [Rx] Prasugrel [Effient] 10 mg PO DAILY #30 tab 03/16/23 [Rx] Follow up Appointment(s)/Referral(s): Americo Ignacio MD [Primary Care Provider] - 03/18/23 5:30 pm (we recommend to check your white cell count with your doctor ) Gerald Kemp DO [STAFF PHYSICIAN] - 1 Week Activity/Diet/Wound Care/Special Instructions: heart healthy diet activity is restricted till you see your doctor Discharge Disposition: HOME SELF-CARE
== END 2023-03-16 15:19 | disposition home or self-care (01) | DRG 322 ==
LOC: EC 10:04 → 3SCARD 12:29 → 2SICU 14:02
PROVIDERS: ADMIT Internal Medicine; ATTEND Internal Medicine
PROC: 027034Z Dilation of Coronary Artery, One Artery with Drug-eluting Intraluminal Device, Percutaneous Approach (ICD-10-PCS; principal; 2023-03-14 15:37)
PROC: B240ZZ3 Ultrasonography of Single Coronary Artery, Intravascular (ICD-10-PCS; principal; 2023-03-14 15:37)
PROC: B2111ZZ Fluoroscopy of Multiple Coronary Arteries using Low Osmolar Contrast (ICD-10-PCS; principal; 2023-03-14 15:37)
PROC: 4A023N7 Measurement of Cardiac Sampling and Pressure, Left Heart, Percutaneous Approach (ICD-10-PCS; principal; 2023-03-14 15:37)
DX: I21.4 Non-ST elevation (NSTEMI) myocardial infarction (principal); D72.829 Elevated white blood cell count, unspecified; R00.1 Bradycardia, unspecified; E78.5 Hyperlipidemia, unspecified; I34.0 Nonrheumatic mitral (valve) insufficiency; Z20.822 Contact with and (suspected) exposure to COVID-19; I25.10 Atherosclerotic heart disease of native coronary artery without angina pectoris; Z72.0 Tobacco use; Z82.49 Family history of ischemic heart disease and other diseases of the circulatory system; Z71.6 Tobacco abuse counseling
CPT/HCPCS: 36415; 71046; 80048; 80053; 80061; 83735; 83880; 84484; 85025; 85027; 85379; 85610; 85730; 86308; 87636; 92978; 93005; 93306; 93458; 94760; 96365; 96366; 96374; 96375; 99291

== ENCOUNTER 2023-03-26 10:36 | Inpatient (IN) | payer BC ==
[2023-03-26] MEDS ORDERED: ASPIRIN 81 MG PO STA (10:43)
[2023-03-26] MEDS ORDERED: LORazepam 1 MG TAB PO STA (11:00)
[2023-03-26] MEDS ORDERED: HEPARIN SODIUM 1,000 UN/ML (10ML VL) IV ONE (11:24)
[2023-03-26 11:29] LABS: Basophils # (A) 0.1 k/uL (0-0.2); Basophils % (A) 1 %; Eosinophils # (A) 0.1 k/uL (0-0.7); Eosinophils % (A) 1 %; HCT 44.2 % (39.0-53.0); HGB 14.4 gm/dL (13.0-17.5); Lymphocytes # (A) 1.3 k/uL (1.0-4.8); Lymphocytes % (A) 9 %; MCH 31.2 pg (25.0-35.0); MCHC 32.7 g/dL (31.0-37.0); MCV 95.5 fL (80.0-100.0); Monocytes % (A) 7 %; Neutrophils # (A) 11.7 k/uL (1.3-7.7); Neutrophils % (A) 81 %; RBC 4.63 m/uL (4.30-5.90); RDW 13.3 % (11.5-15.5); WBC 14.4 k/uL (3.8-10.6)
[2023-03-26] MEDS ORDERED: HEPARIN SOD,PORK IN 0.45% NACL 25,000 UNIT in 0.45% NACL 1 250ML.BAG IV SCH (11:30)
--- NOTE | 2023-03-26 11:33 | ED ---
General Adult HPI - General Chief complaint: Chest Pain Stated complaint: Chest pains Time Seen by Provider: 03/26/23 11:00 Source: patient, RN notes reviewed, old records reviewed Mode of arrival: ambulatory Limitations: no limitations - History of Present Illness Initial comments: Patient is a 43-year-old male who presents emergency Department complaining of palpitations, diaphoresis, nausea for the last few days. Recently had a cardiac catheterization with successful stenting of the RCA 1 week ago. Denies any lucas chest pain at this time however states that the symptoms were similar to when he originally presented except he does not yet have the chest pain. States these seem to be more precursor symptoms at that time. Denies any lower ex tremity pain. Does endorse some mild shortness of breath. Presents for further evaluation at this time. I evaluated the patient and he was placed in a room. - Related Data Previous Rx's Medication Instructions Recorded Acetaminophen Tab [Tylenol] 650 mg PO Q6HR PRN tab 03/16/23 Aspirin 81 mg PO DAILY #30 tab 03/16/23 Atorvastatin [Lipitor] 80 mg PO DAILY #30 tab 03/16/23 Metoprolol Tartrate [Lopressor] 25 mg PO BID #60 tab 03/16/23 Nitroglycerin Sl Tabs [Nitrostat] 0.4 mg SUBLINGUAL Q5M PRN #20 tab 03/16/23 Prasugrel [Effient] 10 mg PO DAILY #30 tab 03/16/23 Allergies Allergy/AdvReac Type Severity Reaction Status Date / Time No Known Allergies Allergy Verified 03/26/23 11:43 Review of Systems ROS Statement: Those systems with pertinent positive or pertinent negative responses have been documented in the HPI. Review of Systems: CONST: Endorses intermittent diaphoresis EYES: Denies blurry vision ENT: Denies nasal congestion C/V: Endorses palpitations RESP: Denies shortness of breath GI: Denies abdominal pain : Denies dysuria SKIN: Denies rash. MSK: Denies joint pain. NEURO: Denies headache ROS Other: All systems not noted in ROS Statement are negative. Past Medical History Past Medical History: Myocardial Infarction (MS) History of Any Multi-Drug Resistant Organisms: None Reported Past Surgical History: Heart Catheterization With Stent Past Psychological History: No Psychological Hx Reported Smoking Status: Vaper Past Alcohol Use History: None Reported Past Drug Use History: None Reported, Marijuana - Past Family History Mother Family Medical History: No Reported History Father Family Medical History: Diabetes Mellitus Additional Family Medical History / Comment(s): Type 2 diabetes, multiple heart attacks causing on this side of the family. General Exam - General Exam Comments Initial Comments: General: Appears in no acute distress. Slightly diaphoretic. HEAD: Normal with no signs of head trauma. EYES: PERRLA, EOMI, conjunctiva normal, no discharge. ENT: Hearing grossly intact, normal oropharynx. RESPIRATORY: Clear breath sounds bilaterally. No wheezes, rales, or rhonchi. C/V: Regular rate and rhythm. S1 and S2 auscultated, no edema, peripheral pulses 2+ and intact throughout ABD: Abd is soft, nontender, nondistended EXT: Normal range of motion, no obvious deformity SKIN: No rashes or lesions observed on exposed skin. NEURO: Alert and oriented 4. Limitations: no limitations Course Vital Signs 03/26/23 03/26/23 03/26/23 10:39 10:43 11:41 Temperature 98.1 F Pulse Rate 55 L 80 88 Respiratory 18 16 16 Rate Blood Pressure 132/82 128/80 134/86 O2 Sat by Pulse 98 98 99 Oximetry Medical Decision Making - Medical Decision Making Was pt. sent in by a medical professional or institution (, PA, WINDER CONTORT OPERATOR, urgent care, hospital, or longterm...) When possible be specific @ -No Did you speak to anyone other than the patient for history (EMS, parent, family, police, friend...)? What history was obtained from this source @ -No Did you review nursing and triage notes (agree or disagree)? Why? @ -I reviewed and agree with nursing and triage notes Were old charts reviewed (outside hosp., previous admission, EMS record, old EKG, old radiological studies, urgent care reports/EKG's, longterm records)? Report findings @ -Old charts were reviewed Differential Diagnosis (chest pain, altered mental status, abdominal pain women, abdominal pain men, vaginal bleeding, weakness, fever, dyspnea, syncope, headache, dizziness, GI bleed, back pain, seizure, CVA, palpatations, mental health, musculoskeletal)? @ -Chest pain EKG interpreted by me (3pts min.). @ -As above X-rays interpreted by me (1pt min.). @ -Chest x-ray reveals no obvious acute cardiopulmonary process. CT interpreted by me (1pt min.). @ -None done U/S interpreted by me (1pt. min.). @ -None done What testing was considered but not performed or refused? (CT, X-rays, U/S, labs)? Why? @ -None What meds were considered but not given or refused? Why? @ -None Did you discuss the management of the patient with other professionals (professionals i.e. Dr., PA, WINDER CONTORT OPERATOR, lab, RT, psych nurse, child welfare social worker, food safety manager, teacher, special technical operations officer, employment case manager)? Give summary @ -Discussed with cardiology Dr. Castro who presented at bedside to evaluate the patient. Patient was initially made a STEMI activation by myself however after discussion with Dr. Castro we both agree that patient is showing signs of J-poi nt elevation more diffusely. He is more concerned for pericarditis. STEMI was canceled however patient will be taken for cardiac cath. He was in agreement with plan for aspirin however does not want heparin started at this time. Plan is to take the patient for cardiac cath shortly. I spoke with [facility] Dr. Carranza who accepted the admission. They're covering for Dr. Narvaez. Was smoking cessation discussed for >3mins.? @ -No Was critical care preformed (if so, how long)? @ -Yes, 35 minutes Were there social determinants of health that impacted care today? How? (Homelessness, low income, unemployed, alcoholism, drug addiction, transportation, low edu. Level, literacy, decrease access to med. care, intermediate, rehab)? @ -No Was there de-escalation of care discussed even if they declined (Discuss DNR or withdrawal of care, Hospice)? DNR status @ -No What co-morbidities impacted this encounter? (DM, HTN, Smoking, COPD, CAD, Can cer, CVA, ARF, Chemo, Hep., AIDS, mental health diagnosis, sleep apnea, morbid obesity)? @ -Recent RCA stenting Was patient admitted / discharged? Hospital course, mention meds given and route, prescriptions, significant lab abnormalities, going to OR and other pertinent info. @ -The patient's presentation and physical exam, presents complaining of palpitations. Concern for EKG changes. Patient does appear to have diffuse J- point elevation, however I did immediately ask for repeat EKG. This redemonstrates the new EKG findings when compared with EKG from 03/18. As patient is having these EKG changes with similar symptoms as previous presentation when he presented for cardiac stenting, I did initiate STEMI pager at first. Dr. Castro was immediately available for evaluation of the patient and EKG. After discussion, we did cancel the STEMI activation. Appears to be more related to possible pericarditis with the diffuse J-point elevations. They still plan to perform a cardiac cath. Both agree at this time we do not believe this is a STEMI. Patient will be admitted for his EKG changes, palpitations in the setting of recent cardiac stenting. Patient in agreement this plan. Patient was given aspirin. Considered administering heparin however Dr. Castro requested that we hold this for now. Labs are still pending. Chest x-ray shows no obvious acute findings. Vital signs are within acceptable limits.Laboratory study results reviewed. [facility] Dr. Carranza accepted the admission who is covering for Dr. narvaez. Patient is brought to the Vice President Of Procurement. Undiagnosed new problem with uncertain prognosis? @ -No Drug Therapy requiring intensive monitoring for toxicity (Heparin, Nitro, Insulin, Cardizem)? @ -No Were any procedures done? @ -No Diagnosis/symptom? @ -EKG changes, heart palpitations, in the setting of recent cardiac stenting. Acute, or Chronic, or Acute on Chronic? @ -Acute Uncomplicated (without systemic symptoms) or Complicated (systemic symptoms)? @ -Complicated Side effects of treatment? @ -No Exacerbation, Progression, or Severe Exacerbation? @ -No Poses a threat to life or bodily function? How? (Chest pain, USA, MS, pneumonia, PE, COPD, DKA, ARF, appy, cholecystitis, CVA, Diverticulitis, Homicidal, Suicidal, threat to staff... and all critical care pts) @ -yes - Lab Data Result diagrams: 03/26/23 10:43 03/26/23 10:43 Lab Results 03/26/23 03/26/23 03/26/23 Range/Units 10:43 10:43 10:43 WBC 14.4 H (3.8-10.6) k/uL RBC 4.63 (4.30-5.90) m/uL Hgb 14.4 (13.0-17.5) gm/dL Hct 44.2 (39.0-53.0) % MCV 95.5 (80.0-100.0) fL MCH 31.2 (25.0-35.0) pg MCHC 32.7 (31.0-37.0) g/dL RDW 13.3 (11.5-15.5) % Plt Count 735 H D (150-450) k/uL MPV 7.0 Neutrophils % 81 % Lymphocytes % 9 % Monocytes % 7 % Eosinophils % 1 % Basophils % 1 % Neutrophils # 11.7 H (1.3-7.7) k/uL Lymphocytes # 1.3 (1.0-4.8) k/uL Monocytes # 1.0 (0-1.0) k/uL Eosinophils # 0.1 (0-0.7) k/uL Basophils # 0.1 (0-0.2) k/uL PT 10.7 (10.0-12.5) sec INR 1.0 (<1.2) APTT 23.9 (22.0-30.0) sec Sodium 138 (137-145) mmol/L Potassium 5.5 H (3.5-5.1) mmol/L Chloride 102 (98-107) mmol/L Carbon Dioxide 22 (22-30) mmol/L Anion Gap 14 mmol/L BUN 10 (9-20) mg/dL Creatinine 0.73 (0.66-1.25) mg/dL Est GFR (CKD-EPI)AfAm >90 (>60 ml/min/1.73 sqM) Est GFR (CKD-EPI)NonAf >90 (>60 ml/min/1.73 sqM) Glucose 98 (74-99) mg/dL Calcium 10.4 H (8.4-10.2) mg/dL Magnesium 2.2 (1.6-2.3) mg/dL Total Bilirubin 0.8 (0.2-1.3) mg/dL AST 65 H (17-59) U/L ALT 80 H (4-49) U/L Alkaline Phosphatase 55 (38-126) U/L Troponin I (0.000-0.034) ng/mL NT-Pro-B Natriuret Pep 530 pg/mL Total Protein 7.6 (6.3-8.2) g/dL Albumin 4.2 (3.5-5.0) g/dL Lipase 170 (23-300) U/L 03/26/23 Range/Units 10:43 WBC (3.8-10.6) k/uL RBC (4.30-5.90) m/uL Hgb (13.0-17.5) gm/dL Hct (39.0-53.0) % MCV (80.0-100.0) fL MCH (25.0-35.0) pg MCHC (31.0-37.0) g/dL RDW (11.5-15.5) % Plt Count (150-450) k/uL MPV Neutrophils % % Lymphocytes % % Monocytes % % Eosinophils % % Basophils % % Neutrophils # (1.3-7.7) k/uL Lymphocytes # (1.0-4.8) k/uL Monocytes # (0-1.0) k/uL Eosinophils # (0-0.7) k/uL Basophils # (0-0.2) k/uL PT (10.0-12.5) sec INR (<1.2) APTT (22.0-30.0) sec Sodium (137-145) mmol/L Potassium (3.5-5.1) mmol/L Chloride (98-107) mmol/L Carbon Dioxide (22-30) mmol/L Anion Gap mmol/L BUN (9-20) mg/dL Creatinine (0.66-1.25) mg/dL Est GFR (CKD-EPI)AfAm (>60 ml/min/1.73 sqM) Est GFR (CKD-EPI)NonAf (>60 ml/min/1.73 sqM) Glucose (74-99) mg/dL Calcium (8.4-10.2) mg/dL Magnesium (1.6-2.3) mg/dL Total Bilirubin (0.2-1.3) mg/dL AST (17-59) U/L ALT (4-49) U/L Alkaline Phosphatase (38-126) U/L Troponin I <0.012 (0.000-0.034) ng/mL NT-Pro-B Natriuret Pep pg/mL Total Protein (6.3-8.2) g/dL Albumin (3.5-5.0) g/dL Lipase (23-300) U/L - EKG Data -: EKG Interpreted by Me EKG Comments: 12-lead Electrocardiogram Interpretation Note EKG was reviewed and interpreted by myself. 12-lead ECG performed at 1120 is interpreted by me as revealing sinus bradycardia at a rate of 53 beats per minute. Picacho is normal. AR interval is 172 ms, QRS duration is 94 ms, QTc is 3 97 ms.. Patient does have what appears to be J-point elevations some with diffusely seen mildly and III, aVF and more pronounced in V3 through V5.. R wave progression across the precordium was satisfactory. By my interpretation this EKG is non-diagnostic for acute ischemia. Disposition Clinical Impression: Acute electrocardiography changes, Heart palpitations Disposition: ADMITTED IP TO THIS HOSP Condition: Stable Time of Disposition: 11:25
[2023-03-26 11:38] LABS: Partial Thromboplastin Time 23.9 sec (22.0-30.0); Prothrombin Time 10.7 sec (10.0-12.5)
[2023-03-26 11:43] LABS: Platelet Count 735 k/uL (150-450)
[2023-03-26] MEDS ORDERED: NALOXONE 0.4 MG/ML 1 ML VIAL IV PRN (11:53)
[2023-03-26] MEDS ORDERED: IV FLUID CONTINUATION 1,000 ML IV ONE (11:58)
[2023-03-26] MEDS ORDERED: fentaNYL (PF) 50 MCG/ML 2 ML AMP IVP ONE (11:58)
--- NOTE | 2023-03-26 11:58 | XR ---
EXAMINATION TYPE: XR chest 1V portable DATE OF EXAM: 03/26/2023 COMPARISON: 03/14/2023. HISTORY: Chest pain. TECHNIQUE: Single frontal view of the chest is obtained. FINDINGS: There is no focal air space opacity, pleural effusion, or pneumothorax seen. The cardiac silhouette size is within normal limits. The osseous structures are intact. IMPRESSION: No acute process.
[2023-03-26] MEDS ORDERED: LIDOCAINE 1% INJ 10MG/ML (20 ML MDV) SQ ONE (12:01)
[2023-03-26] MEDS ORDERED: MIDAZOLAM 2 MG/2 ML VIAL IVP ONE (12:02)
[2023-03-26] MEDS ORDERED: VERAPAMIL SYRINGE (5 MG/10 ML) INTRAARTER ONE (12:03)
[2023-03-26] MEDS ORDERED: HEPARIN SODIUM 1,000 UN/ML (10ML VL) IVP ONE (12:06)
[2023-03-26] MEDS ORDERED: IOPAMIDOL-370 200ML BTL INJ ONE (12:15)
[2023-03-26 12:28] LABS: ALT 80 U/L (4-49); African American GFR (CKD) >90 (>60 ml/min/1.73 sqM); Albumin 4.2 g/dL (3.5-5.0); Anion Gap 14 mmol/L; Blood Urea Nitrogen 10 mg/dL (9-20); Carbon Dioxide 22 mmol/L (22-30); Chloride 102 mmol/L (98-107); Glucose 98 mg/dL (74-99); Lipase 170 U/L (23-300); Magnesium 2.2 mg/dL (1.6-2.3); Non-African American GFR(CKD) >90 (>60 ml/min/1.73 sqM); Sodium 138 mmol/L (137-145); Total Bilirubin 0.8 mg/dL (0.2-1.3); Total Protein 7.6 g/dL (6.3-8.2)
[2023-03-26] MEDS ORDERED: RX INFO: IV CONTRAST WAS GIVEN 1 EACH MISC MISCELLANE PRN (12:28)
[2023-03-26] MEDS ORDERED: SODIUM CHLORIDE 0.9% 1,000 ML IV SCH (12:30)
[2023-03-26 12:33] LABS: NT-Pro-B-Type Natriuretic Pept 530 pg/mL
--- NOTE | 2023-03-26 12:35 | P.CARDCATH ---
Date of Procedure: 03/26/23 Description of Procedure: Cardiac Catheterization: The patient is a 43-year-old male with known history of hyperlipidemia, family history of CAD and a prior history of smoking who presented on March 14 with evidence of myocardial infarction and underwent stenting of the RCA. He presented with symptoms of palpitation and dyspnea and had evidence of his inferolateral wall myocardial infarction. Recommendations were made regarding cardiac catheterization, the risks and the complications were discussed with the patient who is in full understanding and agreement. Procedure Description: Patient was brought to culture media laboratory assistant in fasting semi-sedated state after receiving Fentanyl and Benadryl achieiving moderate conscious sedated state. Using Xylocaine Anesthesia and modified Seldinger technique, a 6-Nepalese sheath was introduced in the right radial artery . Subsequently, selective coronary angiography was performed using a 6-Nepalese AL 0.75 guiding catheter and 5-Nepalese 3.5 bend Jeff catheter. Multiple views of the coronary artery including hemiaxial views were obtained. The 5-Nepalese pigtail catheter was used to cross the aortic valve and LVEDP was calculated. Following that, catheter and sheath were removed. Hemostasis was obtained with deployment of vascular band . There was no immediate complication. Patient was returned to room in stable condition. Of note, the patient received a total of 5000 units of intravenous heparin as well as intra-arterial verapamil. Findings: Left main: This is a large size vessel, bifurcating into LAD and left circumflex, left main has no obstructive disease LAD: This is a large size vessel, reaching the apex with a wraparound apex segment giving rise to a moderately sized diagonal branch. The mid LAD has intimal disease of 20-30% with no high-grade stenosis, the rest of the vessel has no significant obstructive disease Left circumflex: This is a large and codominant vessel giving rise to a large obtuse marginal branch and distally bifurcating into small PDA and PLV. The left circumflex in the mid and distal segment has intimal disease of 40% with no high-grade stenosis RCA: This is a codominant vessel large in caliber proximal and midsegment. The stented segment distally in the PDA had no evidence of in-stent thrombosis. The PLV is occluded. Left Ventriculogram: Not performed Hemodynamics: There was no gradient across the aortic valve, LVEDP was 15-20 mmHg Conclusion: 1. Patent stent in the LAD the PDA 2. Occluded right PLV 3. Mild disease in the LAD and left circumflex 4. Codominant system Recommendations: I see no evidence of stent thrombosis and no changes in his anatomy. I have recommended to continue on his present medical regimen in addition to dual antiplatelet treatment. The findings and the recommendations were discussed with the patient and the family and they were in full understanding and agreement. Duration of sedation is 15 minutes.
[2023-03-26 13:04] LABS: Potassium 5.5 mmol/L (3.5-5.1)
[2023-03-26 13:05] LABS: AST 65 U/L (17-59); Alkaline Phosphatase 55 U/L (38-126); Calcium 10.4 mg/dL (8.4-10.2)
[2023-03-26 15:46] LABS: Basophils # (A) 0.1 k/uL (0-0.2); Basophils % (A) 1 %; Eosinophils # (A) 0.1 k/uL (0-0.7); Eosinophils % (A) 1 %; HCT 41.7 % (39.0-53.0); HGB 13.6 gm/dL (13.0-17.5); Lymphocytes # (A) 1.7 k/uL (1.0-4.8); Lymphocytes % (A) 13 %; MCH 31.2 pg (25.0-35.0); MCHC 32.6 g/dL (31.0-37.0); MCV 95.8 fL (80.0-100.0); Mean Platelet Volume 6.8; Monocytes # (A) 1.1 k/uL (0-1.0); Monocytes % (A) 8 %; Neutrophils # (A) 10.1 k/uL (1.3-7.7); Neutrophils % (A) 76 %; Platelet Count 627 k/uL (150-450); RBC 4.35 m/uL (4.30-5.90); RDW 13.3 % (11.5-15.5); WBC 13.3 k/uL (3.8-10.6)
[2023-03-26 15:55] LABS: African American GFR (CKD) >90 (>60 ml/min/1.73 sqM); Anion Gap 14 mmol/L; Blood Urea Nitrogen 11 mg/dL (9-20); Calcium 10.1 mg/dL (8.4-10.2); Carbon Dioxide 23 mmol/L (22-30); Chloride 102 mmol/L (98-107); Glucose 105 mg/dL (74-99); Non-African American GFR(CKD) >90 (>60 ml/min/1.73 sqM); Potassium 4.5 mmol/L (3.5-5.1); Sodium 139 mmol/L (137-145)
[2023-03-26] MEDS: AMOXICILLIN 500 MG CAP PO SCH ×2 (16:19→23:29)
--- NOTE | 2023-03-26 17:16 | P.HPIM ---
History of Present Illness H&P Date: 03/26/23 Chief Complaint: Chest pain 43-year-old male who presents emergency Department complaining of palpitations, diaphoresis, nausea for the last few days. Recently had a cardiac catheterization with successful stenting of the RCA 1 week ago. Denies any lucas chest pain at this time however states that the symptoms were similar to when he originally presented except he does not yet have the chest pain. States these seem to be more precursor symptoms at that time. Denies any lower extremity pain. Does endorse some mild shortness of breath. Presents for further evaluation at this time. I evaluated the patient and he was placed in a room. EKG was completed in ED and initially STEMI activation was done; cardiology reviewed EKG showing signs of J-point elevation diffusely with more concern for pericarditis - Patient was given aspirin and was taken to Baby Nurse-- Conclusion: 1. Patent stent in the LAD the PDA 2. Occluded right PLV 3. Mild disease in the LAD and left circumflex Review of Systems REVIEW OF SYSTEMS: CONSTITUTIONAL: No fever, no malaise, no fatigue. HEENT: No recent visual problems or hearing problems. Denied any sore throat. CARDIOVASCULAR: No chest pain, orthopnea, PND, no palpitations, no syncope. PULMONARY: No shortness of breath, no cough, no hemoptysis. GASTROINTESTINAL: No diarrhea, no nausea, no vomiting, no abdominal pain. NEUROLOGICAL: No headaches, no weakness, no numbness. HEMATOLOGICAL: Denies any bleeding or petechiae. GENITOURINARY: Denies any burning micturition, frequency, or urgency. MUSCULOSKELETAL/RHEUMATOLOGICAL: Denies any joint pain, swelling, or any muscle pain. ENDOCRINE: Denies any polyuria or polydipsia. The rest of the 14-point review of systems is negative. Past Medical History Past Medical History: Myocardial Infarction (DE) History of Any Multi-Drug Resistant Organisms: None Reported Past Surgical History: Heart Catheterization With Stent Past Psychological History: No Psychological Hx Reported Smoking Status: Vaper Past Alcohol Use History: None Reported Past Drug Use History: None Reported, Marijuana - Past Family History Mother Family Medical History: No Reported History Father Family Medical History: Diabetes Mellitus Additional Family Medical History / Comment(s): Type 2 diabetes, multiple heart attacks causing on this side of the family. Medications and Allergies Home Medications Medication Instructions Recorded Confirmed Type Acetaminophen Tab [Tylenol] 650 mg PO Q6HR PRN tab 03/16/23 03/26/23 Rx Aspirin 81 mg PO DAILY #30 tab 03/16/23 03/26/23 Rx Atorvastatin [Lipitor] 80 mg PO DAILY #30 tab 03/16/23 03/26/23 Rx Metoprolol Tartrate [Lopressor] 25 mg PO BID #60 tab 03/16/23 03/26/23 Rx Nitroglycerin Sl Tabs [Nitrostat] 0.4 mg SUBLINGUAL Q5M PRN #20 tab 03/16/23 03/26/23 Rx Prasugrel [Effient] 10 mg PO DAILY #30 tab 03/16/23 03/26/23 Rx Allergies Allergy/AdvReac Type Severity Reaction Status Date / Time No Known Allergies Allergy Verified 03/26/23 11:43 Physical Exam Vitals: Vital Signs Temp Pulse Resp BP Pulse Ox 03/26/23 11:41 88 16 134/86 99 03/26/23 10:43 80 16 128/80 98 03/26/23 10:39 98.1 F 55 L 18 132/82 98 Intake and Output 03/25/23 03/26/23 03/26/23 22:59 06:59 14:59 Intake Total 250 Balance 250 Intake: IV 250 Other: Weight 90.718 kg General: Appears in no acute distress. Slightly diaphoretic. HEAD: Normal with no signs of head trauma. EYES: PERRLA, EOMI, conjunctiva normal, no discharge. ENT: Hearing grossly intact, normal oropharynx. RESPIRATORY: Clear breath sounds bilaterally. No wheezes, rales, or rhonchi. C/V: Regular rate and rhythm. S1 and S2 auscultated, no edema, peripheral pulses 2+ and intact throughout ABD: Abd is soft, nontender, nondistended EXT: Normal range of motion, no obvious deformity SKIN: No rashes or lesions observed on exposed skin. NEURO: Alert and oriented 4. Results CBC & Chem 7: 03/26/23 15:09 03/26/23 15:09 Labs: Abnormal Lab Results - Last 24 Hours (Table) 03/26/23 Range/Units 10:43 WBC 14.4 H (3.8-10.6) k/uL Plt Count 735 H D (150-450) k/uL Neutrophils # 11.7 H (1.3-7.7) k/uL Assessment and Plan Assessment: 1. Chest pain; acute coronary syndrome ruled out - EKG was completed in ED and initially STEMI activation was done; cardiology re viewed EKG showing signs of J-point elevation diffusely with more concern for pericarditis - Patient was given aspirin and was taken to Baby Nurse-- Conclusion: 1. Patent stent in the LAD the PDA 2. Occluded right PLV 3. Mild disease in the LAD and left circumflex -- Patient is recommended to continue with current medical regimen with addition to dual antiplatelet therapy; aspirin and Effient 2. Leukocytosis; likely reactive; no signs of infection; we'll monitor CBC 3. Hyperkalemia; potassium is borderline elevated at 5.5; we will continue to monitor 4. Hypercalcemia; likely related to dehydration; patient received IV fluid hydration in ED; we will repeat electrolytes 5. Hypertension; metoprolol 25 mg twice a day 6. Hyperlipidemia; Lipitor 80 mg by mouth daily at bedtime DVT prophylaxis; SCDs CODE STATUS; full code
--- NOTE | 2023-03-26 17:27 | CA ---
Transthoracic Echo Report Name: Zeke Tesfaye Age: 43 Gender: M : 1980 Exam Date: 03/26/2023 14:49 Exam Location: [facility] Ht (in): 72 Wt (lb): 200 Ordering Physician: Frederic Figueroa MD ([id number]) Attending/Referring Phys: Maintenance Worker House Trailer Rubina Quintero RDCS Procedure CPT: Indications: CAD Cardiac Hx: limited study Technical Quality: Good Contrast 1: Total Dose (mL): Contrast 2: Total Dose (mL): MEASUREMENTS (Male / Female) Normal Values 2D ECHO LV Diastolic Volume MOD 4C 169.4 cm??? LV Systolic Volume MOD 4C 70.3 cm??? LV Ejection Fraction MOD 4C 58.5 % LV Cardiac Index MOD 4C 2845.9 cm???/min???m??? LV Diastolic Length 4C 10.3 cm LV Systolic Length 4C 8.4 cm LV Diastolic Volume MOD 2C 205.3 cm??? LV Systolic Volume MOD 2C 97.9 cm??? LV Ejection Fraction MOD 2C 52.3 % LV Cardiac Index MOD 2C 3084.0 cm???/min???m??? LV Diastolic Length 2C 10.1 cm LV Systolic Length 2C 7.6 cm LA Volume 87.8 cm??? 18 - 58 / 22 - 52 cm??? LA Volume Index 40.6 cm???/m??? 16 - 28 cm???/m??? FINDINGS Left Ventricle Left ventricular ejection fraction is estimated at 50-55 %. Inferobasal hypokinesis Right Ventricle Right Atrium Left Atrium Severely increased left atrial volume. Mitral Valve Mild mitral regurgitation.structurally normal mitral valve. Aortic Valve Trileaflet aortic valve. Tricuspid Valve Structurally normal tricuspid valve. Trace tricuspid regurgitation. Pulmonic Valve Structurally normal pulmonic valve. Pericardium No pericardial effusion. Aorta CONCLUSIONS 1. Left ventricular systolic function is borderline normal with inferobasal hypokinesis 2. Mild mitral with trace tricuspid regurgitation Previewed by: Dr. Frederic Figueroa MD (Electronically Signed) Final Date: 26 March 2023 17:26
[2023-03-26] MEDS: FAMOTIDINE 20 MG TAB PO SCH (20:42)
[2023-03-26] MEDS: METOPROLOL TARTRATE 25 MG TAB PO SCH (20:42)
--- NOTE | 2023-03-26 22:56 | CONS ---
CONSULTATION HISTORY OF PRESENT ILLNESS: This is a 43-year-old gentleman who underwent a catheterization and PTCA of mid RCA performed by Dr. Figueroa on the of this month. He had a PLV that was totally occluded. He was sent home, was doing well and was also seen in the office. He comes in to the hospital complaining of palpitations and diaphoresis. No clear-cut chest pain, but when he takes a deep breath, he has a pleuritic chest pain. EKG revealed J- point prominence and inferior T-wave inversion. This could be pericarditis, but given the fact he had a recent intervention and he feels that his diaphoresis is very similar, I will recommend coronary angiography. This does not suggest any ST-elevation [place], more or less an acute ischemic syndrome with the possibility that this could still be pericarditis. I am recommending coronary angiography. Defer heparin for now. The patient is on dual-antiplatelet therapy with aspirin and Effient. He is comfortable, hemodynamically stable at the time of my evaluation. PAST MEDICAL HISTORY: Recent hospitalization on March 07 with acute ischemic syndrome and non-ST- elevation [place] type picture with stenting of the RCA. Mid and distal RCA were stented. PLV was totally occluded and PDA was also addressed. PHYSICAL EXAMINATION: VITAL SIGNS: Blood pressure is 130/70, pulse rate is 58 per minute. HEENT: Unremarkable. Fundus was not examined by me. NECK: Supple. No JVD. I do not hear a carotid bruit. There is no thyromegaly. HEART: Reveals S1, S2 heard normally. No rub, murmur, or gallop. LUNGS: Clear. ABDOMEN: Soft, nontender. EXTREMITIES: Lower extremities reveal normal pulses, no edema. NEUROLOGIC: Central nervous system is normal. IMPRESSION: 1. Probable acute ischemic syndrome. 2. More likely to be pericarditis. 3. Recent PCI of mid and distal RCA. RECOMMENDATIONS: Discuss with Dr. Figueroa, proceed with coronary angiography and based on findings intervention. He will also require echocardiogram to follow. MMODL / IJN: [id number] /
[2023-03-27] MEDS ORDERED: ALPRAZolam 1 MG TAB PO STA (02:24)
[2023-03-27] MEDS: METOPROLOL TARTRATE 25 MG TAB PO SCH (08:48)
[2023-03-27 08:49] VITALS: TEMP 98.2
[2023-03-27] MEDS: AMOXICILLIN 500 MG CAP PO SCH (08:49)
[2023-03-27] MEDS: FAMOTIDINE 20 MG TAB PO SCH (08:50)
[2023-03-27] MEDS ORDERED: ASPIRIN 81 MG PO SCH (09:00)
[2023-03-27] MEDS ORDERED: PRASUGREL 10 MG TAB PO SCH (09:00)
[2023-03-27] MEDS ORDERED: ATORVASTATIN 80 MG TAB PO SCH (09:00)
[2023-03-27 12:12] VITALS: BP 127/86; PULSE 51; RESP 20
[2023-03-27 14:50] LABS: African American GFR (CKD) >90 (>60 ml/min/1.73 sqM); Anion Gap 17 mmol/L; Blood Urea Nitrogen 12 mg/dL (9-20); Calcium 10.2 mg/dL (8.4-10.2); Carbon Dioxide 21 mmol/L (22-30); Chloride 100 mmol/L (98-107); Glucose 125 mg/dL (74-99); Non-African American GFR(CKD) >90 (>60 ml/min/1.73 sqM); Sodium 138 mmol/L (137-145)
--- NOTE | 2023-03-27 15:07 | P.PN ---
Subjective Progress Note Date: 03/27/23 The patient is a 43-year-old male who presented to the hospital with palpitations and chest discomfort. The patient recently underwent stenting of his RCA with Dr. Figueroa. Dr. Figueroa repeated his coronary angiogram which revealed patent stents. Limited echo showed preserved LV function with no pericardial effusion. Patient states he's been feeling well overnight. He has been up ambulate around the unit. Occasionally he will have some mild tightness in his chest with deep breathing. GENERAL: Well-appearing, well-nourished and in no acute distress. NECK: Supple without JVD or thyromegaly. LUNGS: Breath sounds clear to auscultation bilaterally. Respiration equal and unlabored. No wheezes, rales or rhonchi. HEART: Regular rate and rhythm without murmurs, rubs or gallops. S1 and S2 heard. EXTREMITIES: Normal range of motion, no edema. No clubbing or cyanosis. Peripheral pulses intact and strong. TELEMETRY: Sinus rhythm overnight IMPRESSION: Palpitations Inspiratory chest discomfort, likely pericarditis History of coronary artery disease Recent PCI admitted distal RCA PLAN: Patient may be discharged from the cardiac standpoint No need for colchicine at discharge Patient to continue home cardiac medications Follow-up with Dr. Figueroa in one week I am dictating on behalf of Dr Kaleb Villanueva's history/physical and assessment/plan. Objective - Vital Signs Vital signs: Vital Signs Temp 98.2 F 03/27/23 08:00 Pulse 51 L 03/27/23 11:25 Resp 20 03/27/23 11:25 BP 127/86 03/27/23 11:25 Pulse Ox 99 03/27/23 11:25 FiO2 Intake & Output 03/26/23 03/27/23 03/27/23 18:59 06:59 18:59 Intake Total 250 10 240 Balance 250 10 240 Weight 90.718 kg Intake: IV 250 10 Invasive Line 1 10 Oral 240 Other: Voiding Method Toilet Toilet Toilet # Voids 1 1 - Labs CBC & Chem 7: 03/26/23 15:09 03/27/23 09:09 Labs: Abnormal Lab Results - Last 24 Hours (Table) 03/26/23 03/26/23 03/26/23 Range/Units 15:09 15:09 15:09 WBC 13.3 H (3.8-10.6) k/uL Plt Count 627 H (150-450) k/uL Neutrophils # 10.1 H (1.3-7.7) k/uL Monocytes # 1.1 H (0-1.0) k/uL D-Dimer 0.66 H (<0.60) mg/L FEU Carbon Dioxide (22-30) mmol/L Glucose 105 H (74-99) mg/dL 03/27/ Range/Units 09:09 WBC (3.8-10.6) k/uL Plt Count (150-450) k/uL Neutrophils # (1.3-7.7) k/uL Monocytes # (0-1.0) k/uL D-Dimer (<0.60) mg/L FEU Carbon Dioxide 21 L (22-30) mmol/L Glucose 125 H (74-99) mg/dL
--- NOTE | 2023-03-27 16:50 | P.DS ---
Providers Date of admission: 03/26/23 11:54 Expected date of discharge: 03/27/23 Attending physician: Jack Babin Consults: 03/26/23 11:36 Consult Physician Urgent Consulting Provider: [facility] Reason/Comments: palpatations, ekg changes, recent RCA stent Do you want consulting provider notified?: Already Contacted Primary care physician: [facility] Course: Chief Complaint: Chest pain 43-year-old male who presents emergency Department complaining of palpitations, diaphoresis, nausea for the last few days. Recently had a cardiac catheterization with successful stenting of the RCA 1 week ago. Denies any lucas chest pain at this time however states that the symptoms were similar to when he originally presented except he does not yet have the chest pain. States these seem to be more precursor symptoms at that time. Denies any lower extremity pain. Does endorse some mild shortness of breath. Presents for further evaluation at this time. I evaluated the patient and he was placed in a room. EKG was completed in ED and initially STEMI activation was done; cardiology reviewed EKG showing signs of J-point elevation diffusely with more concern for pericarditis - Patient was given aspirin and was taken to Rehab Train[facility]-- Conclusion: 1. Patent stent in the LAD the PDA 2. Occluded right PLV 3. Mild disease in the LAD and left circumflex March 27: I assumed care of the patient today. Patient feeling much better. Did ambulate. Discussed with Dr. Kaleb De La Torre from cardiology. Appears to be pericarditis. Some elevated white count. Normal troponins. No change in cardiac cath findings. Patient not to be given any NSAIDs given CAD. Otherwise patient is doing well. Discussed with the patient. Prior to recent admission patient was doing about smoking marijuana, vaping, laying in able marijuana, and also chewing tobacco. Discussed with patient. Questions answered. 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 Discussion and discharge planning more than 35 minutes On examination: 98.2, 51, 20, 127/86, 99% room air Sitting up comfortable Lungs: Clear Cardiovascular: First seconds are normal, no edema Past Medical History Past Medical History: Myocardial Infarction ([place]) History of Any Multi-Drug Resistant Organisms: None Reported Past Surgical History: Heart Catheterization With Stent Past Psychological History: No Psychological Hx Reported Smoking Status: Vaper Past Alcohol Use History: None Reported Past Drug Use History: None Reported, Marijuana - Past Family History Mother Family Medical History: No Reported History Father Family Medical History: Diabetes Mellitus Additional Family Medical History / Comment(s): Type 2 diabetes, multiple heart attacks causing on this side of the family. INVESTIGATIONS, reviewed in the clinical context: White count 13.3 hemoglobin 13.6 platelets 627 potassium 5 creatinine 0.86 2-D echocardiogram: LV function normal with inferobasal hypokinesis. Assessment: 1. Chest pain; acute viral pericarditis Conclusion: 1. Patent stent in the LAD the PDA 2. Occluded right PLV 3. Mild disease in the LAD and left circumflex -- Patient is recommended to continue with current medical regimen with addition to dual antiplatelet therapy; aspirin and Effient Because of CAD not to be given NSAIDs 2. Leukocytosis; likely reactive; no signs of infection; we'll monitor CBC 3. Hyperkalemia; potassium is borderline elevated at 5.5; we will continue to monitor 4. Hypercalcemia; likely related to dehydration; patient received IV fluid hydration in ED; we will repeat electrolytes 5. Hypertension; metoprolol 25 mg twice a day 6. Hyperlipidemia; Lipitor 80 mg by mouth daily at bedtime CODE STATUS; full code Disposition: Home Plan - Discharge Summary Discharge Rx Participant: No New Discharge Prescriptions: New Famotidine [Pepcid] 20 mg PO BID #60 tab Amoxicillin 500 mg PO Q8HR cap Continue Prasugrel [Effient] 10 mg PO DAILY #30 tab Metoprolol Tartrate [Lopressor] 25 mg PO BID #60 tab Nitroglycerin Sl Tabs [Nitrostat] 0.4 mg SUBLINGUAL Q5M PRN #20 tab PRN Reason: Chest Pain Atorvastatin [Lipitor] 80 mg PO DAILY #30 tab Acetaminophen Tab [Tylenol] 650 mg PO Q6HR PRN tab PRN Reason: Mild Pain Or Fever > 100.5 Changed Aspirin 81 mg PO BID #30 tab Discharge Medication List Acetaminophen Tab [Tylenol] 650 mg PO Q6HR PRN tab 03/16/23 [Rx] Atorvastatin [Lipitor] 80 mg PO DAILY #30 tab 03/16/23 [Rx] Metoprolol Tartrate [Lopressor] 25 mg PO BID #60 tab 03/16/23 [Rx] Nitroglycerin Sl Tabs [Nitrostat] 0.4 mg SUBLINGUAL Q5M PRN #20 tab 03/16/23 [Rx] Prasugrel [Effient] 10 mg PO DAILY #30 tab 03/16/23 [Rx] Amoxicillin 500 mg PO Q8HR cap 03/27/23 [Rx] Aspirin 81 mg PO BID #30 tab 03/27/23 [Rx] Famotidine [Pepcid] 20 mg PO BID #60 tab 03/27/23 [Rx] Follow up Appointment(s)/Referral(s): own-chicken dresserdr [Other] - 1 Week (Please follow up with Dr. Figueroa as scheduled previously.) Americo Ignacio MD [Primary Care Provider] - 1-2 days (Office closed at this time; please call [facility] on Wednesday to schedule follow up appointment.) Patient Instructions/Handouts: Acute Pericarditis (DC), Heart Catheterization (DC) Discharge Disposition: HOME SELF-CARE
== END 2023-03-27 13:45 | disposition home or self-care (01) | DRG 287 ==
LOC: EC 10:36 → 3SCARD 11:42 → 1SOBS 11:54 → 3SCARD 12:54
PROVIDERS: ADMIT Hospitalist; ATTEND Hospitalist
PROC: 4A023N7 Measurement of Cardiac Sampling and Pressure, Left Heart, Percutaneous Approach (ICD-10-PCS; principal; 2023-03-26 11:26)
PROC: B2111ZZ Fluoroscopy of Multiple Coronary Arteries using Low Osmolar Contrast (ICD-10-PCS; principal; 2023-03-26 11:26)
DX: I30.1 Infective pericarditis (principal); I25.10 Atherosclerotic heart disease of native coronary artery without angina pectoris; I25.2 Old myocardial infarction; F17.290 Nicotine dependence, other tobacco product, uncomplicated; Z28.310 Unvaccinated for COVID-19; E86.0 Dehydration; Z28.21 Immunization not carried out because of patient refusal; I10 Essential (primary) hypertension; E78.5 Hyperlipidemia, unspecified; E87.5 Hyperkalemia; E83.52 Hypercalcemia; Z79.82 Long term (current) use of aspirin; R61 Generalized hyperhidrosis; D72.829 Elevated white blood cell count, unspecified; Z79.899 Other long term (current) drug therapy; Z79.02 Long term (current) use of antithrombotics/antiplatelets; Z95.5 Presence of coronary angioplasty implant and graft; Z82.49 Family history of ischemic heart disease and other diseases of the circulatory system
CPT/HCPCS: 36415; 71045; 80048; 80053; 83690; 83735; 83880; 84484; 85025; 85379; 85610; 85730; 93005; 93308; 93458; 99291

== ENCOUNTER 2023-11-21 11:24 | Emergency (ER) | payer OTHER ==
--- NOTE | 2023-12-20 13:59 | XR ---
Patient Zeke Tesfaye ID [id number] Order # EXAMINATION TYPE: XR chest 2V DATE OF EXAM: 11/21/2023 COMPARISON: No comparison available on downtime PACS. INDICATION: Heart palpitations and history of NM TECHNIQUE: Frontal and lateral views of the chest are obtained. FINDINGS: The heart size is normal. The pulmonary vasculature is normal. The lungs are clear. Good inspiratory effort. IMPRESSION: 1. No acute pulmonary process.
== END 2023-11-21 16:23 | disposition home or self-care (01) ==
LOC: EC 11:24 → EDSTATUS 11:53 → EC 16:23
DX: R00.2 Palpitations (principal)
CPT/HCPCS: 71046; 93005; 99285